=== PATIENT | female | born 1950 | race Caucasian/White ===

== ENCOUNTER 2016-05-05 14:08 | Emergency (ER) | payer OTHER ==
--- NOTE | 2016-05-05 14:52 | CPEKG ---
Heart Rate: 72 RR Interval: 833 P-R Interval: 152 QRSD Interval: 92 QT Interval: 404 QTC Interval: 443 P [place]: 4 QRS [place]: 16 T Wave [place]: 22 EKG Severity - NORMAL ECG - EKG Impression: SINUS RHYTHM Electronically Signed By: Doris Langston 05-May-2016 18:24:04
--- NOTE | 2016-05-05 15:02 | UCPHY ---
H & P Patient Type: New Chief Complaint Nursing Narrative: 830 - 900 am 05/04/16 had 15 minutes conc on one foot in front of another and also trouble she thinks with speech and the processing of speech . . happened while on a walk with friends . No facial asymmetry. No slurred speech. No arm weakness. Time Seen by Provider: 05/05/16 14:59 HPI/ROS: CHIEF COMPLAINT: Episode of uncoordination and speech difficulties yesterday. HISTORY OF PRESENT ILLNESS: This is a 66-year-old female with a history of L5/ S1 injury with right leg radiculopathy. Yesterday while walking at 0900 she had an episode of difficulty controlling her legs and difficulty processing language. She reports she also may have had word-finding difficulties. She denies falling to the ground but had to concentrate harder to walk properly. She does not believe her legs felt weaker than usual. She did not have a headache. The episode lasted 15 minutes and she has had no residual symptoms today. She denies chest pain, shortness of breath, numbness or paresthesia in her arms or legs, abdominal pain, nausea, vomiting, recent sickness. Her paternal grandma had a stroke in her 70s but she otherwise has no family history of stroke. She reports having vertigo problems over the summer and had normal brain and neck MRIs taken. REVIEW OF SYSTEMS: Aside from elements discussed in the HPI, a comprehensive 10-point review of systems was reviewed and is negative. PAST MEDICAL HISTORY: Hypothyroidism, vertigo. SOCIAL HISTORY: , here alone, works as a PA. VITAL SIGNS: Reviewed by me GENERAL: Well-developed, well-nourished, resting comfortably in no respiratory distress. HEENT: Atraumatic. Eyes: No icterus, no injection. Mouth: moist mucous membranes. No erythema or lesions. Neck: supple with no adenopathy. LUNGS: Clear to auscultation bilaterally, no wheezes, rhonchi or rales. CARDIAC: Regular rate and rhythm, no rubs, murmurs or gallops. ABDOMEN: Soft, nontender, nondistended, bowel sounds normal. BACK: No CVA tenderness. EXTREMITIES: No trauma. No edema. Range of motion is normal throughout. NEURO: Weakness in right upper extremity the patient reports is ongoing. Weakness in right lower extremity the patient reports is unchanged. Alert and oriented. Cranial nerves 2-12 are intact. Sensation is intact throughout. Motor strength normal except as mentioned above. Able to name objects, speech is fluent and articulate. SKIN: Warm and dry, no rash. PSYCHIATRIC: Normal mentation, no agitation. Portions of this note were transcribed by a medical assisting program director. I personally performed a history, physical exam, medical decision making, and confirmed accuracy of information the transcribed note. Source: Patient Exam Limitations: No limitations - Medical/Surgical History Other PMH: L4 Laminectomy. knee left replacement. ortho. csec. tonsilectomy . PCP Sully Valerio. FLu . Tetanus UTD - Family History Significant Family History: Other (Grandmother had a stroke at 72.) - Social History Smoking Status: Never smoked Constitutional: Initial Vital Signs Temperature (C) 36.8 C 05/05/16 14:22 Heart Rate 74 05/05/16 14:22 Respiratory Rate 16 05/05/16 14:22 Blood Pressure 144/66 H 05/05/16 14:22 O2 Sat (%) 99 05/05/16 14:22 O2 Delivery Mode Room Air Allergies/Adverse Reactions: No Known Allergies Allergy (Unverified 05/05/16 14:33) Home Medications: Medication Instructions Recorded DIAZEPAM 05/05/16 Estradiol 1 MG (*) 05/05/16 LEVOTHYROXINE SODIUM 05/05/16 Pravastatin Sodium 05/05/16 Progesterone 05/05/16 SUMAtriptan 05/05/16 Medical Decision Making - Diagnostics EKG Interpretation: 12-LEAD EKG: Please see the full report in [facility]. My interpretation: Normal sinus rhythm rate 72. Imaging: Study: CT of the head. Indication: Neurological. Results: No acute process. The study was read by the radiologist, Dr. Mejia. I viewed the images myself on the PACS system. X-ray of the chest was obtained. I viewed the images myself on the PACS system. My interpretation of the images is: no acute process. The radiologist interpretation is pending at this time. I discussed the x-ray findings with the patient. ED Course/Re-evaluation: An IV was established and labs ordered. EKG, head CT, Chest x-ray ordered. 324mg PO Aspirin and 1L IV saline administered. 1540: CT per Dr. Mejia reported to be negative. Patient's blood work negative for acute abnormalities. Course was discussed with Dr. Ben Matamoros, on-call for Neurology. Patient was offered admission to the hospital for evaluation of her TIA. Patient declined and would prefer to have the workup as an outpatient. She received 325 mg of aspirin in the emergency department. She will follow up with Dr. Matamoros tomorrow without fail. She understands that if she should have a recurrence of her symptoms or develop other neurologic symptoms she should return immediately to the emergency department. She understands that cardiac evaluation including prolonged cardiac monitoring as well as evaluation of her neck vessels have not been completed. She understands that she is at risk to have an acute stroke within the next 30 days. Differential Diagnosis: Differential diagnoses the patient's presenting complaints was considered including but not limited to intracranial injury, TIA, ischemic cerebrovascular accident, hemorrhagic cerebrovascular accident, hypoglycemia, complex migraine , metastases, tumor, seizure, or electrolyte abnormality - Data Points Laboratory Results: Laboratory Results 05/05/16 15:00 05/05/16 15:00 05/05/16 15:00 WBC 9.24 10^3/uL (3.80-9.50) RBC 4.46 10^6/uL (4.18-5.33) Hgb 14.2 g/dL (12.6-16.3) Hct 41.7 % (38.0-47.0) MCV 93.5 fL (81.5-99.8) MCH 31.8 pg (27.9-34.1) MCHC 34.1 g/dL (32.4-36.7) RDW 13.6 % (11.5-15.2) Plt Count 361 10^3/uL (150-400) MPV 8.6 L fL (8.7-11.7) Neut % (Auto) 65.6 % (39.3-74.2) Lymph % (Auto) 27.3 % (15.0-45.0) [place] % (Auto) 5.5 % (4.5-13.0) Eos % (Auto) 0.5 L % (0.6-7.6) Baso % (Auto) 0.5 % (0.3-1.7) Nucleat RBC Rel Count 0.0 % (0.0-0.2) Absolute Neuts (auto) 6.05 10^3/uL (1.70-6.50) Absolute Lymphs (auto) 2.52 10^3/uL (1.00-3.00) Absolute Monos (auto) 0.51 10^3/uL (0.30-0.80) Absolute Eos (auto) 0.05 10^3/uL (0.03-0.40) Absolute Basos (auto) 0.05 10^3/uL (0.02-0.10) Absolute Nucleated RBC 0.00 10^3/uL (0-0.01) Immature Gran % 0.6 % (0.0-1.1) Immature Gran # 0.06 10^3/uL (0.00-0.10) PT 11.1 L SEC (12.0-15.0) INR 0.82 L (0.83-1.16) Sodium 138 mEq/L (134-144) Potassium 4.1 mEq/L (3.5-5.2) Chloride 101 mEq/L (97-110) Carbon Dioxide 27 mEq/l (22-31) Anion Gap 10 mEq/L (8-16) BUN 18 mg/dL (7-23) Creatinine 0.8 mg/dL (0.6-1.0) Estimated GFR > 60 Glucose 89 mg/dL (70-100) Calcium 9.6 mg/dL (8.5-10.4) Troponin I < 0.012 ng/mL (0-0.034) Medications Given: Discontinued Medications Aspirin (Aspirin) 324 mg PO EDNOW ONE Stop: 05/05/16 15:17 Last Admin: 05/05/16 15:26 Dose: 324 mg Sodium Chloride (Ns) 1,000 mls @ 500 mls/hr IV EDNOW ONE Stop: 05/05/16 17:15 Last Admin: 05/05/16 15:26 Dose: 1,000 mls Departure - Departure Disposition: Home, Routine, Self-Care Clinical Impression: TIA (transient ischemic attack) Condition: Good Instructions: Transient Ischemic Attack (ED) Additional Instructions: Call Dr. Matamoros, neurology, immediately this afternoon to set up a follow up appointment. Tell his office you were a patient of Dr. Langston' in the Urgent Care. You been offered admission to the hospital. You would prefer to have the remaining portions of your TIA workup completed as an outpatient. You understand that there is a risk of recurrent TIA or risk of CVA. Return to the emergency department for confusion, numbness or weakness on one side of your body, difficulty speaking, or other serious worsening of condition. Referrals: Liseth Valerio MD [Primary Care Provider] - As per Instructions Ben Matamoros DO [Medical Doctor] - As per Instructions - PQRS PQRS Measurement: 134: Depression screening and followup, PRIME MD-PHQ2 (12 years and older) Over the last 2 weeks, how often have you been bothered by any of the following problems? 1. Feeling down, depressed, or hopeless? 2. Little interest or pleasure in doing things? [Patient answered no to both 1 and 2] [Patient answered yes to at least 1, referred to PCP for further evaluation.] [Not done because] [altered mental status] [patient refused] [critically ill.] 130: Documentation of medications. [Reviewed all patient medications, doses, route and frequency.] [Unable to obtain meds due to] [critical illness] [altered mental status] [ patient did not know]. 226: Do you smoke? [No.] [Yes, counseled to stop.] 47: 65 and older: Advanced care planning. Patient designates surrogate decision maker as [parent] [spouse] [ ]. [Patient refused.] [Patient has advanced directive.] 51: 18 years old and older with diagnosis of COPD, spirometry performance. [Patient has no history of COPD] [Spirometry not performed; equipment not available.] 52: 18 years old and older with COPD and symptoms of COPD or FEV1<60% predicted prescribed a B Agonist. [Patient has no history of COPD] [Spirometry not performed; equipment not available.] Report Scribed for: Doris Langston Report Scribed by: Osorio Maddox Date of Report: 05/05/16 Time of Report: 15:09
[2016-05-05 15:07] LABS: % IMMATURE GRANULYOCYTES 0.6 % (0.0-1.1); ABSOLUTE IMMATURE GRANULOCYTES 0.06 10^3/uL (0.00-0.10); ADD DIFF? NO; ADD MORPH? NO; ADD SCAN? NO; ATYPICAL LYMPHOCYTE FLAG 0 (0-99); FRAGMENT RBC FLAG 0 (0-99); HEMATOCRIT 41.7 % (38.0-47.0); HEMOGLOBIN 14.2 g/dL (12.6-16.3); LEFT SHIFT FLG 0 (0-99); LIPEMIA HEMOLYSIS FLAG 90 (0-99); MEAN CELL HEMOGLOBIN 31.8 pg (27.9-34.1); MEAN CELL HEMOGLOBIN CONCENTR. 34.1 g/dL (32.4-36.7); MEAN CELL VOLUME 93.5 fL (81.5-99.8); MEAN PLATELET VOLUME 8.6 fL (8.7-11.7); PLATELET CLUMPS FLAG 10 (0-99); PLATELET COUNT 361 10^3/uL (150-400); RED BLOOD CELL COUNT 4.46 10^6/uL (4.18-5.33); RED CELL DISTRIBUTION WIDTH 13.6 % (11.5-15.2)
[2016-05-05] MEDS ORDERED: ASPIRIN 81 MG CHEWABLE TAB PO ONE (15:16)
[2016-05-05] MEDS ORDERED: NS 1,000 ML IV ONE (15:16)
[2016-05-05 15:20] LABS: ANION GAP 10 mEq/L (8-16); CALCIUM 9.6 mg/dL (8.5-10.4); CARBON DIOXIDE 27 mEq/l (22-31); CHLORIDE 101 mEq/L (97-110); CREATININE 0.8 mg/dL (0.6-1.0); GLOMERULAR FILTRATION RATE > 60; GLUCOSE 89 mg/dL (70-100); POTASSIUM 4.1 mEq/L (3.5-5.2); SODIUM 138 mEq/L (134-144)
[2016-05-05 15:44] LABS: INR 0.82 (0.83-1.16); PROTIME(PATIENT) 11.1 SEC (12.0-15.0)
--- NOTE | 2016-05-05 15:46 | CT ---
CT Brain (Without Contrast) 1531 hours History: Dysarthria and receptive aphasia yesterday , transient ischemic attack, coordination diffic ulty. Comparison: None. Technique: Axial computed tomographic images of the brain without contrast. Dose reduction technique s were utilized. Findings: Ventricles, cisterns, and sulci are normal without atrophy, hydrocephalus, midline shift/h erniation, or epidural/subdural hematomas. No acute intraparenchymal hemorrhage, definite infarct, or mass effect. Bone windows demonstrate no displaced fractures. Paranasal sinuses and mastoid air cell s are clear. Cerebrovascular atherosclerotic calcifications of bilateral cavernous and supraclinoid i nternal carotid arteries. Impression: 1. Cerebrovascular atherosclerosis. 2. Otherwise normal noncontrast CT brain. 3. Consider MRI of the brain without and with contrast enhancement, if there is continued clinical co ncern. Findings and recommendations discussed with Emergency Department physician, Dr. Doris Langston at 1540 hour, today. Final report concurs with initial preliminary interpretation.
[2016-05-05 16:11] VITALS: O2SAT 98
--- NOTE | 2016-05-05 16:12 | DX ---
Chest, Two Views 1526 hours History: Acute neurological changes. Comparison: None. Findings: Cardiac silhouette is within normal range. No pneumonia, congestive heart failure, pleura l effusion, or pneumothorax. Impression: No definite pneumonia.
[2016-05-05 16:57] VITALS: BP 139/81; PULSE 68; RESP 16; TEMP 97.9
== END 2016-05-05 16:57 | disposition home or self-care (01) ==
LOC: CED 14:08
DX: G45.9 Transient cerebral ischemic attack, unspecified (principal)
CPT/HCPCS: 70450-PO; 71020-PO; 80048-PO; 84484-PO; 85025-PO; 85610-PO; 93010-PO; 96360-PO; 99205-PO; G0463-PO

== ENCOUNTER → 2016-09-03 | Outpatient (CLI) | payer OTHER | LOC: CIMAGING 12:17 | DX: Z12.31 Encounter for screening mammogram for malignant neoplasm of breast (principal) | CPT/HCPCS: G0202 ==

== ENCOUNTER → 2018-02-11 | Outpatient (CLI) | payer OTHER | LOC: BHCLAF 10:30 | PROVIDERS: ATTEND Internal Medicine Cardiovascular Disease | DX: I48.91 Unspecified atrial fibrillation (principal); E78.5 Hyperlipidemia, unspecified | CPT/HCPCS: 93005-PO ==